=== PATIENT | male | born 1980 | race Caucasian/White ===

== ENCOUNTER 2021-01-18 06:21 | Emergency (ER) | payer OTHER ==
[2021-01-18 06:35] VITALS: BP 132/70; PULSE 80; TEMP 98.4; BMI 27.8
[2021-01-18] MEDS ORDERED: diphenhydrAMINE HCL 25 MG CAPSULE (FP) PO ONE ×2 (07:15→07:23)
== END 2021-01-18 07:35 | disposition home or self-care (01) ==
LOC: JER 06:21
DX: L23.9 Allergic contact dermatitis, unspecified cause (principal)
CPT/HCPCS: 99283-25